=== PATIENT | male | born 1980 | race Caucasian/White ===

== ENCOUNTER 2021-11-26 13:18 | Emergency (ER) | payer SELFPAY ==
[~2021-11-26] VITALS: Ht 175.3 cm; Wt 93.0 kg
[2021-11-26 14:07] VITALS: BP 137/79
[2021-11-26] MEDS ORDERED: KETOROLAC 60 MG/2 ML VIAL IM ONE (14:30)
[2021-11-26] MEDS ORDERED: IBUP-2213 PO (14:38)
[2021-11-26 14:56] VITALS: BP 137/79
--- NOTE | 2021-11-26 14:56 | NUR ---
Patient discharged with v/s stable. Written and verbal after care instructions given and explained. Patient alert, oriented and verbalized understanding of instructions. Ambulatory with steady gait. All questions addressed prior to discharge. ID band removed. Patient advised to follow up with PMD. Rx of ibuprofen (sent) given. Patient educated on indication of medication including possible reaction and side effects. Opportunity to ask questions provided and answered.
--- NOTE | 2021-11-26 14:56 | NUR ---
41 y/o male c/o low back pain on right side that started yesterday at work, denies overexertion, injury, dysuria or hematuria. denies n/v/d. skin is pink/warm/dry/ aa&ox4 with even and steady gait, lungs clear bl, hr even and regular. pt denies any fever, cp, sob or cough at this time. pt states pain of 9/10 at this time. ermd made aware of pt status. pmh: denies nka med: denies
== END 2021-11-26 14:56 | disposition home or self-care (01) ==
LOC: MED 13:18
DX: R10.9 Unspecified abdominal pain (principal)
CPT/HCPCS: 81002; 96372; 99283; J1885